=== PATIENT | female | born 1955 | race Caucasian/White ===

== ENCOUNTER → 2019-08-17 15:21 | Outpatient (CLI) | payer OTHER, SELFPAY ==
--- NOTE | 2019-08-17 | DI.MG.S_ITS ---
BILATERAL DIGITAL SCREENING MAMMOGRAM 3D/2D WITH CAD: 08/17/2019 CLINICAL: Routine screening. Family history of breast cancer. Comparison is made to exams dated: 06/24/2018 mammogram, 01/29/2017 mammogram, and 01/19/2015 mammogram - [facility]. The tissue of both breasts is heterogeneously dense. This may lower the sensitivity of mammography. Current study was also evaluated with a Computer Aided Detection (CAD) system. No significant masses, calcifications, or other findings are seen in either breast. There has been no significant interval change. IMPRESSION: NEGATIVE There is no mammographic evidence of malignancy. A 1 year screening mammogram is recommended. This exam was interpreted at Station ID: [id number]. NOTE: For mammograms, a report in lay terms will be sent to the patient. Approximately 15% of breast malignancies will not be visualized mammographically. In the management of a palpable breast mass, a negative mammogram must not discourage biopsy of a clinically suspicious lesion. Electronically Signed By: Alfonso blankenship/aurelio:08/17/2019 19:55:15 letter sent: Normal Exam ACR BI-RADS Category 1: Negative 3341F
== END ==
PROVIDERS: Visit Provider Family Medicine
DX: Z12.31 Encounter for screening mammogram for malignant neoplasm of breast (principal); Z80.3 Family history of malignant neoplasm of breast
CPT/HCPCS: 77063; 77067

== ENCOUNTER → 2020-08-12 09:56 | Outpatient (CLI) | payer OTHER, SELFPAY ==
--- NOTE | 2020-08-12 | DI.US.S_ITS ---
PROCEDURE: US CAROTID DOPPLER BI INDICATIONS: STENOSIS TECHNIQUE: Color and pulse Doppler interrogation was performed of both carotid systems, with image documentation and velocity measurements. COMPARISON: [facility], CT, CT ABDOMEN PELVIS W CON, 08/12/2020, 11:19. FINDINGS: Stenosis calculations are based on SRU (Society of Radiologists in Ultrasound) criteria. The flow velocities and the arterial waveforms are normal within both carotid arterial systems. Atherosclerotic plaque is seen on both sides. The estimated degree of internal carotid artery stenosis is less than 50%. Antegrade flow is confirmed within both vertebral arteries. IMPRESSION: No hemodynamically significant stenosis is seen. Atherosclerotic plaque is noted bilaterally. Dictated by: Rony Cali M.D. on 08/12/2020 at 10:53 Approved by: Rony Cali M.D. on 08/12/2020 at 10:54
[2020-08-12 10:37] LABS: Alanine Aminotransferase 26 IU/L (<35); Albumin 4.6 g/dL (3.5-5.0); Albumin Globulin Ratio 1.3 (1.0-2.8); Alkaline Phosphatase 84 U/L (38-126); Amylase 88 U/L (30-110); Aspartate Aminotransferase 35 IU/L (14-36); BUN Creatinine Ratio 18.5 (6-22); Bilirubin Total 0.9 mg/dL (0.2-1.3); Blood Urea Nitrogen 12 mg/dL (7-17); Calcium 9.6 mg/dL (8.4-10.2); Carbon Dioxide 26 mmol/L (22-32); Chloride 99 mmol/L (98-107); Estimated Glomerular Filt Rate > 60.0 mL/min (>60); Globulin 3.5 g/dL (1.7-4.1); Glucose 99 mg/dL (80-110); Lipase 181 U/L (23-300); Potassium 4.7 mmol/L (3.4-5.1); Sodium 127 mmol/L (137-145); Total Protein 8.1 g/dL (6.3-8.2)
[2020-08-12 10:39] LABS: C-Reactive Protein Quant < 0.5 mg/dL (<1.0); Erythrocyte Sedimentation Rate 20 MM/HR (0-20)
[2020-08-12 11:00] LABS: T4 Total Thyroxine 8.99 ug/dL (5.5-11.0)
--- NOTE | 2020-08-12 11:20 | DI.CT.S_ITS ---
PROCEDURE: CT ABDOMEN PELVIS W CON INDICATIONS: Pain in thoracic spine Occlusion and stenosis TECHNIQUE: After the administration of oral and intravenous contrast, 5 mm thick sections acquired from the diaphragms to the symphysis. 5 mm thick coronal and sagittal reformats were performed. For radiation dose reduction, the following was used: automated exposure control, adjustment of mA and/or kV according to patient size. COMPARISON: None. FINDINGS: Image quality: Excellent. ABDOMEN: Lung bases: Linear scarring or atelectasis is seen in the left lung base. Heart size is normal. Solid organs: Liver is normal in size and enhancement. Gallbladder appears normal. Biliary system is non-dilated. Pancreas enhances normally. Spleen is normal in size and enhancement. No adrenal nodules. Kidneys are normal in size and enhancement, without hydronephrosis. Peritoneum and bowel: A few diverticula are seen in the colon without signs of acute diverticulitis. No signs of small bowel obstruction. No free fluid or air. Nodes and vessels: No retroperitoneal or mesenteric adenopathy. Aorta and inferior vena cava are normal in caliber. Mild atherosclerotic calcifications are seen in the aorta. Miscellaneous: No ventral hernias. PELVIS: Genitourinary: Bladder wall thickness is normal. The uterus appears normal. No adnexal mass. Miscellaneous: No inguinal hernias or adenopathy. Bones: No suspicious bony lesions. No vertebral body compression fractures. Mild multilevel degenerative changes are seen in the included spine without high-grade narrowing of the bony spinal canal. IMPRESSION: 1. No acute abnormality is seen in the abdomen or pelvis. 2. Mild colonic diverticulosis without signs of acute diverticulitis. 3. Mild multilevel degenerative changes in the included spine. Dictated by: Juanjose Bell M.D. on 08/12/2020 at 10:58 Approved by: Juanjose Bell M.D. on 08/12/2020 at 11:07
[2020-08-13 07:09] LABS: Triiodothyronine T3 Total 99 ng/dL (71-180)
[2020-08-18 14:45] LABS: Cholesterol 194 mg/dL (140-199); HDL Cholesterol 45 mg/dL (40-60); HEMOLYSIS 26 (0-50); LDL Cholesterol Calculated 119 mg/dL (<100); Triglycerides 149 mg/dL (35-150)
== END ==
PROVIDERS: PCP Internal Medicine; Referring Provider Internal Medicine; Visit Provider Internal Medicine
DX: M54.6 Pain in thoracic spine (principal); I65.23 Occlusion and stenosis of bilateral carotid arteries; K21.00 Gastro-esophageal reflux disease with esophagitis, without bleeding; R07.9 Chest pain, unspecified; K57.90 Diverticulosis of intestine, part unspecified, without perforation or abscess without bleeding; E03.9 Hypothyroidism, unspecified; E78.5 Hyperlipidemia, unspecified; M47.819 Spondylosis without myelopathy or radiculopathy, site unspecified
CPT/HCPCS: 36415; 74177; 80053; 80061; 82150; 83690; 84436; 84443; 84480; 85651; 86140; 93880; Q9967

== ENCOUNTER → 2020-08-24 11:35 | Outpatient (CLI) | payer OTHER, SELFPAY ==
--- NOTE | 2020-08-24 | DI.MG.S_ITS ---
BILATERAL DIGITAL SCREENING MAMMOGRAM 3D/2D WITH CAD: 08/24/2020 CLINICAL: Routine screening. Family history of breast cancer. Comparison is made to exams dated: 08/17/2019 mammogram - [facility], 06/24/2018 mammogram, and 01/29/2017 mammogram - [facility]. The tissue of both breasts is heterogeneously dense. This may lower the sensitivity of mammography. Current study was also evaluated with a Computer Aided Detection (CAD) system. No significant masses, calcifications, or other findings are seen in either breast. There has been no significant interval change. IMPRESSION: NEGATIVE There is no mammographic evidence of malignancy. A 1 year screening mammogram is recommended. This exam was interpreted at Station ID: [id number]. NOTE: For mammograms, a report in lay terms will be sent to the patient. Approximately 15% of breast malignancies will not be visualized mammographically. In the management of a palpable breast mass, a negative mammogram must not discourage biopsy of a clinically suspicious lesion. Electronically Signed By: Alfonso blankenship/aurelio:08/24/2020 11:59:04 letter sent: Normal Exam ACR BI-RADS Category 1: Negative 3341F
[2020-08-24 11:59] LABS: Bacteria Urine None Seen
[2020-08-24 12:37] LABS: Appearance Urine UA CLEAR; Bilirubin Urine UA NEGATIVE (NEGATIVE); Color Urine UA YELLOW; Glucose Urine UA NEGATIVE (Negative); Ketones Urine UA NEGATIVE (NEGATIVE); Leukocyte Esterase Urine UA 2+ (NEGATIVE); Nitrite Urine UA NEGATIVE (Negative); Occult Blood Urine UA 2+ (Negative); Protein Urine UA NEGATIVE (Negative); Urobilinogen Urine UA 0.2 E.U./dL (0.2)
[2020-08-24 12:39] LABS: Sodium Urine Random 25 mmol/L (30-90)
[2020-08-24 12:43] LABS: RBC Urine 1-5/HPF (0-5/HPF); WBC Urine 5-10/HPF (0-5/HPF)
[2020-08-24 12:44] LABS: Culture Indicated Urine Cult Not Indicated; Squamous Epithelial Cell Urine 5-10 /HPF (0-5/HPF); Transitional Epi Cells Urine 1-5/HPF (0-5/HPF)
[2020-08-24 12:45] LABS: BUN Creatinine Ratio 21.3 (6-22); Blood Urea Nitrogen 13 mg/dL (7-17); Calcium 9.7 mg/dL (8.4-10.2); Carbon Dioxide 29 mmol/L (22-32); Chloride 97 mmol/L (98-107); Cholesterol 213 mg/dL (140-199); Estimated Glomerular Filt Rate > 60.0 mL/min (>60); Glucose 96 mg/dL (80-110); HDL Cholesterol 56 mg/dL (40-60); HEMOLYSIS < 15 (0-50); LDL Cholesterol Calculated 123 mg/dL (<100); Potassium 4.1 mmol/L (3.4-5.1); Sodium 133 mmol/L (137-145); Triglycerides 169 mg/dL (35-150)
[2020-08-25 15:08] LABS: Osmolality Urine 358 mOsmol/kg (.); Osmolality, Serum 276 mOsmol/kg (280-301)
== END ==
PROVIDERS: PCP Internal Medicine; Referring Provider Internal Medicine; Visit Provider Internal Medicine
DX: Z12.31 Encounter for screening mammogram for malignant neoplasm of breast (principal); Z80.3 Family history of malignant neoplasm of breast; E87.1 Hypo-osmolality and hyponatremia; E78.5 Hyperlipidemia, unspecified; M54.5 Low back pain
CPT/HCPCS: 36415; 77063; 77067; 80048; 80061; 81001; 83930; 83935; 84300

== ENCOUNTER → 2020-08-31 14:47 | Outpatient (CLI) | payer OTHER, SELFPAY ==
--- NOTE | 2020-08-31 | DI.RAD.S_ITS ---
PROCEDURE: XR CHEST 2V INDICATIONS: Hypo-osmolality and hyponatremia TECHNIQUE: 2 views of the chest were acquired. COMPARISON: None. FINDINGS: Surgical changes and devices: None. Lungs and pleura: Lungs are clear. No pleural effusions or pneumothorax. Mediastinum: Mediastinal contours are normal. Heart size is normal. Bones and chest wall: No suspicious bony abnormalities. Soft tissues appear unremarkable. IMPRESSION: No acute disease. Dictated by: James Mccabe M.D. on 08/31/2020 at 15:32 Approved by: James Mccabe M.D. on 08/31/2020 at 15:33
[2020-08-31 15:58] LABS: Appearance Urine UA CLEAR; Bilirubin Urine UA NEGATIVE (NEGATIVE); Color Urine UA YELLOW; Glucose Urine UA NEGATIVE (Negative); Ketones Urine UA NEGATIVE (NEGATIVE); Leukocyte Esterase Urine UA TRACE (NEGATIVE); Nitrite Urine UA NEGATIVE (Negative); Occult Blood Urine UA 1+ (Negative); Protein Urine UA NEGATIVE (Negative); Specific Gravity Urine UA 1.015 (1.000-1.035); Urobilinogen Urine UA 0.2 E.U./dL (0.2)
[2020-08-31 16:36] LABS: Bacteria Urine Few (2-10); Culture Indicated Urine Specimen Cultured; RBC Urine 1-5/HPF (0-5/HPF); Squamous Epithelial Cell Urine 1-5 /HPF (0-5/HPF); WBC Urine 0-1/HPF (0-5/HPF)
== END ==
PROVIDERS: PCP Internal Medicine; Referring Provider Internal Medicine; Visit Provider Internal Medicine
DX: E87.1 Hypo-osmolality and hyponatremia (principal); R31.29 Other microscopic hematuria
CPT/HCPCS: 71046; 81001; 87077; 87086; 87147

== ENCOUNTER → 2020-11-21 15:31 | Outpatient (CLI) | payer MEDICARE, SELFPAY ==
[2020-11-21] MEDS: COVID-19 VACC, Ad26(JANSSEN)/PF 0.5 ML IM (15:35)
== END ==
PROVIDERS: PCP Internal Medicine; Visit Provider Internal Medicine
DX: Z23 Encounter for immunization (principal)
CPT/HCPCS: 0031A; 91303

== ENCOUNTER → 2020-12-21 13:07 | Outpatient (CLI) | payer MEDICARE, OTHER, SELFPAY ==
--- NOTE | 2020-12-21 | DI.RAD.S_ITS ---
PROCEDURE: XR DEXA AXIAL SKELETON INDICATIONS: Unspecified menopausal and perimenopausal disorder COMPARISON: None. FINDINGS: This blank DEXA report has been sent in error by the PACS system. The correct and complete report will be forthcoming in 1-2 days. Thank you for your patience and understanding. Dictated by: Susi Levine MD, PhD on 12/21/2020 at 17:18 Approved by: Susi Levine MD, PhD on 12/21/2020 at 17:18
== END ==
PROVIDERS: PCP Student in an Organized Health Care Education/Training Program; Referring Provider Student in an Organized Health Care Education/Training Program; Visit Provider Student in an Organized Health Care Education/Training Program
DX: M85.852 Other specified disorders of bone density and structure, left thigh (principal); Z78.0 Asymptomatic menopausal state
CPT/HCPCS: 77080

== ENCOUNTER → 2021-09-11 16:38 | Outpatient (CLI) | payer MEDICARE, BC, SELFPAY ==
--- NOTE | 2021-09-11 16:44 | DI.MG.S_ITS ---
BILATERAL DIGITAL SCREENING MAMMOGRAM 3D/2D WITH CAD: 09/11/2021 CLINICAL: Routine screening. Family history of breast cancer. Comparison is made to exams dated: 08/24/2020 mammogram, 08/17/2019 mammogram - [facility], and 06/24/2018 mammogram - [facility]. The tissue of both breasts is extremely dense, which lowers the sensitivity of mammography. Current study was also evaluated with a Computer Aided Detection (CAD) system. No significant masses, calcifications, or other findings are seen in either breast. There has been no significant interval change. IMPRESSION: NEGATIVE There is no mammographic evidence of malignancy. A 1 year screening mammogram is recommended. This exam was interpreted at Station ID: [id number]. NOTE: For mammograms, a report in lay terms will be sent to the patient. Approximately 15% of breast malignancies will not be visualized mammographically. In the management of a palpable breast mass, a negative mammogram must not discourage biopsy of a clinically suspicious lesion. Electronically Signed By: Keri campoverde/aurelio:09/12/2021 10:38:27 letter sent: Normal Exam ACR BI-RADS Category 1: Negative 3341F
== END ==
PROVIDERS: PCP Student in an Organized Health Care Education/Training Program; Referring Provider Student in an Organized Health Care Education/Training Program; Visit Provider Student in an Organized Health Care Education/Training Program
DX: Z12.31 Encounter for screening mammogram for malignant neoplasm of breast (principal); Z80.3 Family history of malignant neoplasm of breast
CPT/HCPCS: 77063; 77067

== ENCOUNTER → 2022-06-04 11:06 | Outpatient (CLI) | payer MEDICARE, OTHER, SELFPAY ==
--- NOTE | 2022-06-04 11:13 | DI.RAD.S_ITS ---
PROCEDURE: XR HIP W PEL IF DONE RT 2V INDICATIONS: RIGHT HIP PAIN TECHNIQUE: AP pelvis with lateral view(s) of the right hip(s). COMPARISON: None. FINDINGS: Bones: No fractures or dislocations. Pelvic ring appears intact. No suspicious bony lesions. Mild degenerative changes of both hips. Soft tissues: The visualized bowel gas pattern is normal. No suspicious soft tissue calcifications. IMPRESSION: Mild degenerative changes of both hips and sacroiliac joints. Dictated by: Farhad Byrd M.D. on 06/04/2022 at 12:30 Approved by: Farhad Byrd M.D. on 06/04/2022 at 12:32
--- NOTE | 2022-06-04 11:13 | DI.RAD.S_ITS ---
PROCEDURE: XR LUMBAR SPINE 2-3V INDICATIONS: LOW BACK PAIN WITH RIGHT-SIDED SCIATICA TECHNIQUE: 3 views of the lumbar spine were acquired. COMPARISON: None. FINDINGS: Bones: Three views of the lumbar spine demonstrate multilevel degenerative changes and osteophytes. Facet arthrosis is seen in the lower lumbar spine spanning from L3 through S1. No vertebral body height loss. Sacroiliac joints are normal. Mild rightward curvature of the lumbar spine. Soft tissues: The aorta has atherosclerotic calcifications. Overlying bowel gas pattern is normal. No suspicious soft tissue calcifications. IMPRESSION: 1. Multilevel degenerative changes and facet arthrosis. 2. No significant disc space narrowing. 3. Given radicular symptoms consider MRI. Dictated by: Farhad Byrd M.D. on 06/04/2022 at 12:21 Approved by: Farhad Byrd M.D. on 06/04/2022 at 12:29
--- NOTE | 2022-06-04 11:13 | DI.RAD.S_ITS ---
PROCEDURE: XR HAND LT MIN 3V INDICATIONS: BILATERAL HAND PAIN AND SWELLING TECHNIQUE: 3 views of the hand(s) acquired. COMPARISON: None. FINDINGS: Bones: No fractures or dislocations. Carpal bones are normally aligned. No suspicious bony lesions. Degenerative changes of the distal interphalangeal joints are minimal. No erosions or evidence of inflammatory arthropathy. Soft tissues: No suspicious soft tissue calcifications. IMPRESSION: Minimal degenerative changes in the distal interphalangeal joints with no radiographic evidence of inflammatory arthropathy. Dictated by: Farhad Byrd M.D. on 06/04/2022 at 12:19 Approved by: Farhad Byrd M.D. on 06/04/2022 at 12:21
--- NOTE | 2022-06-04 11:13 | DI.RAD.S_ITS ---
PROCEDURE: XR HAND RT MIN 3V INDICATIONS: BILATERAL HAND PAIN AND SWELLING TECHNIQUE: 3 views of the hand(s) acquired. COMPARISON: None. FINDINGS: Bones: No fractures or dislocations. Carpal bones are normally aligned. No suspicious bony lesions. Soft tissues: No suspicious soft tissue calcifications. IMPRESSION: Normal right hand radiographs Approved by: Bernard Gonsalves M.D. on 06/04/2022 at 14:01
== END ==
PROVIDERS: PCP Student in an Organized Health Care Education/Training Program; Referring Provider Student in an Organized Health Care Education/Training Program; Visit Provider Student in an Organized Health Care Education/Training Program
DX: M47.26 Other spondylosis with radiculopathy, lumbar region (principal); M25.551 Pain in right hip; M25.541 Pain in joints of right hand; M79.89 Other specified soft tissue disorders; M25.542 Pain in joints of left hand; G89.29 Other chronic pain
CPT/HCPCS: 72100; 73130; 73502

== ENCOUNTER → 2022-08-13 10:17 | Outpatient (CLI) | payer MEDICARE, OTHER, SELFPAY ==
--- NOTE | 2022-08-13 10:20 | DI.RAD.S_ITS ---
PROCEDURE: XR CERVICAL SPINE 4V OR 5V INDICATIONS: cervical radiculopathy TECHNIQUE: 3 views of the cervical spine acquired. COMPARISON: None. FINDINGS: Bones: No fractures or dislocations to the T1 level. Loss of disc height and degenerative endplate changes are noted throughout cervical spine more notably at C4-5 and C5-6 levels. Oblique images demonstrate right-sided bony foraminal stenosis at C3-4 level. Bilateral neural foraminal narrowing at C5-6 and C6-7 levels also noted. Soft tissues: No prevertebral soft tissue swelling. IMPRESSION: Degenerative disc disease throughout cervical spine with bilateral neural foraminal narrowing in mid to lower cervical spine as above. No fracture or dislocation. Dictated by: Mal Brambila M.D. on 08/13/2022 at 13:05 Approved by: Mal Brambila M.D. on 08/13/2022 at 13:08
--- NOTE | 2022-08-13 10:20 | DI.RAD.S_ITS ---
PROCEDURE: XR THORACIC SPINE 3V INDICATIONS: Thoracic radiculopathy TECHNIQUE: 3 views of the thoracic spine were acquired. COMPARISON: None. FINDINGS: Bones: No fractures or dislocations. No suspicious bony lesions. Degenerative endplate changes are noted throughout mid to lower thoracic spine. 12 pairs of ribs are noted, and appear intact where visualized. Soft tissues: No paravertebral stripe thickening. IMPRESSION: Mild degenerative disc disease in mid to lower thoracic spine. No acute compression fracture or spondylolisthesis. Dictated by: Mal Brambila M.D. on 08/13/2022 at 13:04 Approved by: Mal Brambila M.D. on 08/13/2022 at 13:05
== END ==
PROVIDERS: PCP Student in an Organized Health Care Education/Training Program; Referring Provider Physical Medicine & Rehabilitation; Visit Provider Physical Medicine & Rehabilitation
DX: M47.24 Other spondylosis with radiculopathy, thoracic region (principal); M51.14 Intervertebral disc disorders with radiculopathy, thoracic region; M50.121 Cervical disc disorder at C4-C5 level with radiculopathy; M48.02 Spinal stenosis, cervical region; M70.61 Trochanteric bursitis, right hip
CPT/HCPCS: 72050; 72072; 99214

== ENCOUNTER → 2022-09-21 14:38 | Outpatient (CLI) | payer OTHER, SELFPAY ==
--- NOTE | 2022-09-21 14:40 | DI.MRI.S_ITS ---
PROCEDURE: MR THORACIC SPINE WO CON INDICATIONS: Thoracic radiculopathy Right T10 TECHNIQUE: Noncontrast sagittal T1 spine echo and T2 fast spin echo, sagittal STIR, and T2 fast spin echo through the thoracic spine. COMPARISON: [facility], MR, MR CERVICAL SPINE WO CON, 09/21/2022, 15:17. [facility], CR, XR THORACIC SPINE 3V, 08/13/2022, 10:33. FINDINGS: Image quality: This examination is limited by involuntary motion artifact. Alignment and Curvature: There is normal bony alignment. Bone Marrow: Marrow is of normal overall signal. Scattered foci are seen, which are hyperintense on T1-weighted and T2-weighted imaging, which are most consistent with benign vertebral body hemangiomas. No acute vertebral body compression fractures. Spinal Cord: Visualized spinal cord is normal in size and signal. Paraspinous Soft Tissues: No paravertebral masses. Miscellaneous: Lower cervical spine degenerative changes are seen. No significant neural foraminal or central canal narrowing can be seen within the thoracic spine. IMPRESSION: No imaging explanation is found for this patient's presenting symptoms. No significant thoracic spine MRI abnormality can be seen. Dictated by: Rony Cali M.D. on 09/21/2022 at 16:30 Approved by: Rony Cali M.D. on 09/21/2022 at 16:32
--- NOTE | 2022-09-21 14:40 | DI.MRI.S_ITS ---
PROCEDURE: MR CERVICAL SPINE WO CON INDICATIONS: Right C7 Radicu TECHNIQUE: Noncontrast sagittal T1 spin echo and T2 fast spin echo, sagittal STIR, foraminal oblique sagittal T2 fast spin echo, and axial gradient echo or T2 fast spin echo through the cervical spine. COMPARISON: [facility], CR, XR CERVICAL SPINE 4V OR 5V, 08/13/2022, 10:33. [facility], MR, MR THORACIC SPINE WO CON, 09/21/2022, 15:54. FINDINGS: Image quality: Excellent. Alignment and Curvature: There is straightening of the normal cervical lordosis. No focal AP alignment abnormality is seen. Bone Marrow: Marrow demonstrates normal overall signal. Spinal Cord: Visualized spinal cord has normal size and signal. No cerebellar tonsillar herniation. Paraspinous Soft Tissues: No paravertebral masses. Prevertebral soft tissues are normal in thickness. C2-C3: The disc height is well-preserved. Loss of disc signal is seen at this level. A mild degree of generalized disc osteophyte complex is seen. Mild facet joint hypertrophy is seen. There is [id number] bilateral neural foraminal narrowing seen. No significant central canal narrowing is seen. C3-C4: The disc height is well-preserved. Loss of disc signal is seen at this level. A mild degree of generalized disc osteophyte complex is seen. There is prominent left-sided and mild right-sided facet hypertrophy. There is moderate to severe left-sided and at least moderate right-sided neural foraminal narrowing. Mild central canal narrowing is seen. C4-C5: Mild loss of disc height is seen. Loss of disc signal is seen. Moderate generalized disc osteophyte complex is seen. There is moderate right-sided and mild left-sided facet hypertrophy. There is moderate to severe right-sided and moderate left-sided neural foraminal narrowing. Mild to moderate central canal narrowing can be seen. C5-C6: Moderate loss of disc height is seen. Loss of disc signal is seen. At least moderate disc osteophyte complex is seen, which is eccentric to the right. Uncovertebral joint hypertrophy is seen at this level. Mild facet joint hypertrophy is seen. There is moderate to severe bilateral neural foraminal narrowing seen, right worse than left. Moderate central canal narrowing is seen. There is associated mass effect upon the ventral spinal cord. C6-C7: Moderate loss of disc height is seen. Loss of disc signal is seen. Moderate disc osteophyte complex is seen, with a central/left disc osteophyte protrusion. Uncovertebral joint hypertrophy is seen at this level. Mild to moderate facet hypertrophy can be seen. There is at least moderate right-sided and moderate to severe left-sided neural foraminal narrowing. Moderate central canal narrowing is seen, with minimal mass effect upon the ventral spinal cord. C7-T1: No significant abnormality is seen. IMPRESSION: Multiple levels of cervical spine degenerative change are seen, which are overall worst inferiorly. Dictated by: Rony Cali M.D. on 09/21/2022 at 16:25 Approved by: Rony Cali M.D. on 09/21/2022 at 16:30
== END ==
PROVIDERS: PCP Student in an Organized Health Care Education/Training Program; Referring Provider Physical Medicine & Rehabilitation; Visit Provider Physical Medicine & Rehabilitation
DX: M47.22 Other spondylosis with radiculopathy, cervical region (principal); M47.24 Other spondylosis with radiculopathy, thoracic region
CPT/HCPCS: 72141; 72146

== ENCOUNTER → 2022-10-03 13:25 | Outpatient (CLI) | payer OTHER, SELFPAY ==
--- NOTE | 2022-10-03 | DI.MG.S_ITS ---
BILATERAL DIGITAL SCREENING MAMMOGRAM 3D/2D WITH CAD: 10/03/2022 CLINICAL: Routine screening. Family history of breast cancer. Comparison is made to exams dated: 09/11/2021 mammogram, 08/24/2020 mammogram, 08/17/2019 mammogram - , and 06/24/2018 mammogram - [facility]. Both breasts are extremely dense, which lowers the sensitivity of mammography (category d />75% glandular tissue). Current study was also evaluated with a Computer Aided Detection (CAD) system. No significant masses, calcifications, or other findings are seen in either breast. There has been no significant interval change. IMPRESSION: NEGATIVE There is no mammographic evidence of malignancy. A 1 year screening mammogram is recommended. Based on the Tyrer Cuzick model (a risk assessment model) the patient's lifetime risk is 14.8% and her 10 year risk is 7.6%. According to the ACR, ACS, and NCCN guidelines, an annual breast MRI exam along with mammogram is recommended if the patient's lifetime risk is 20% or greater. This exam was interpreted at Station ID: [id number]. NOTE: For mammograms, a report in lay terms will be sent to the patient. Approximately 15% of breast malignancies will not be visualized mammographically. In the management of a palpable breast mass, a negative mammogram must not discourage biopsy of a clinically suspicious lesion. Electronically Signed By: Young sánchez/aurelio:10/03/2022 13:47:52 letter sent: Normal Exam ACR BI-RADS Category 1: Negative 3341F
== END ==
PROVIDERS: PCP Student in an Organized Health Care Education/Training Program; Referring Provider Student in an Organized Health Care Education/Training Program; Visit Provider Student in an Organized Health Care Education/Training Program
DX: Z12.31 Encounter for screening mammogram for malignant neoplasm of breast (principal); Z80.3 Family history of malignant neoplasm of breast
CPT/HCPCS: 77063; 77067

== ENCOUNTER 2022-11-27 09:11 | Outpatient (CLI) | payer OTHER, SELFPAY ==
[2022-11-27] VITALS (8 sets, daily range): BP systolic 112–134; BP diastolic 62–71; PULSE 52–60; RESP 12–20; TEMP 36.2; O2SAT 97–100
--- NOTE | 2022-11-27 09:13 | DI.RAD.S_ITS ---
PROCEDURE: PAIN C/T INTERLAMINAR INJECT INDICATIONS: SPINAL STENOSIS COMPARISON: [facility], CR, XR CERVICAL SPINE 4V OR 5V, 08/13/2022, 10:33. FINDINGS: Fluoroscopic spot filming was performed to verify placement of spinal needles at the C6-C7 level(s), as labeled on the films. Appropriate location(s) of the needle tip(s) was confirmed by injection of iodinated contrast. IMPRESSION: Image guidance provided. Dictated by: Young Roblero M.D. on 11/27/2022 at 11:54 Approved by: Young Roblero M.D. on 11/27/2022 at 11:55
[2022-11-27] MEDS: MIDAZOLAM 2 MG/2 ML VIAL IV (10:26)
[2022-11-27] MEDS: DEXAMETHASONE 10 MG/ML VIAL 30 MG INJ (10:30)
[2022-11-27] MEDS: BUPIVACAINE 0.25% (PF) VIAL 2 ML INJ (10:30)
[2022-11-27] MEDS: IOPAMIDOL 15 ML VIAL 3 ML INJ (10:30)
--- NOTE | 2022-11-27 10:43 | P.PCN_ITS ---
Date/Time/Diagnoses Date of procedure: 11/27/22 Time of procedure: 10:43 Pre-procedure diagnosis: 1. CERVICAL STENOSIS, 2. CERVICAL HNP WITH UPPER EXTREMITY RADICULAR FEATURES Post-procedure diagnosis: same Procedure Notes Procedure: 1. FLUORSCOPICALLY GUIDED CONTRAST CONTROLLED INTERLAMINAR EPIDURAL STEROID INJECTION - C6/7 TL LAKESHA Indications: Kim is referred by Lara Gonslaes for treatment of Cervical HNP with Upper Extremity Paresthesias. Physician: Sammy Louie Total Fluoroscopy time (seconds): 29 Total sedation minutes: 14 Complications: none Procedure in detail & Post-procedure care: FINDINGS Cervical Stenosis due to disc deterioration and nerve root irritation and nerve root irritation DESCRIPTION OF PROCEDURE Fluoroscopically guided, contrast-controlled C6/7 translaminar epidural steroid injection with conscious sedation. Following review of allergy and review of potential side effects and complications, including, but not necessarily limited to, infection, allergic reaction, local tissue breakdown, temporary as well as permanent nerve injury, stroke, paralysis, and possible , the patient indicated that patient understood and agreed to proceed. An informed consent document was signed by the patient, witnessed by a nurse, and placed in the patient's chart. Additionally, other treatment options including modalities, medications, and physical therapy were reviewed with the patient. After review of previous anaesthesic history and IV conscious sedation the patient was deemed safe to proceed with today?s procedure with IV conscious s edation as ASA class II designation. Safety time-out was performed to confirm patient ID, procedure to be performed and site of procedure. IV sedation was accomplished with a combination of 2mg of Versed administered by the RN after DO order, titrated to patient comfort during the course of the procedure while the patient remained responsive to all verbal commands. In the prone position, following sterile prep and drape of the cervical region, the C6/7 translaminar space was identified fluoroscopically. The skin was anesthetized via a 25-gauge 1.5-inch needle with 1% lidocaine solution. At this point, a 25-gauge, 2.5-inch short bevel spinal needle was atraumatically introduced and advanced under fluoroscopic guidance into epidural space at the C6/7 translaminar space. Depth was confirmed on lateral view. Radiological data, including multiple fluoroscopic views of the cervical spine, reveal a spinal needle at the C6/7 translaminar space. Lateral views then show placement of the needle in the epidural space. Subsequent views show contrast material flowing superiorly and inferiorly in the epidural space. DSA fluoroscopy with live contrast injection, once again, confirmed no vascular or intrathecal uptake. At this point, using loss of resistance technique with saline and air, the epidural space was entered. Following negative aspiration, injection of approximately 1.5 cc of [id number]-200 with live fluoroscopy in the AP view confirmed epidural flow in the epidural space without vascular or intrathecal uptake observed. Subsequently, a test dose of 1 cc of 1% lidocaine solution was injected and patient was observed for two minutes without signs or symptoms of complications, including abdominal pain, shortness of breath, bilateral upper or lower extremity weakness, nausea and vomiting, prior to steroid injection. At this point, 3cc or 30mg of dexamethasone was then injected without incident. The patient tolerated the procedure well without signs or symptoms of complications prior to being transferred to the recovery area for further monitoring, The patient was then transferred to the recovery area where they were observed for an appropriate period of time after the injection. The patient reported a VAS score of 6 prior to the procedure and a post-procedure VAS of 0. POST OP INSTRUCTIONS The patient was provided a Pain Log to continue to record their response to the target-specific procedure prior to follow-up visit with the referring provider. Additionally, specific post-injection care instructions and a contact number to our office were provided if concerns arise regarding possible complications associated with the procedure are suspected.
== END 2022-11-27 10:56 | disposition home or self-care (01) ==
PROVIDERS: PCP Student in an Organized Health Care Education/Training Program; Referring Provider Physical Medicine & Rehabilitation; Visit Provider Physical Medicine & Rehabilitation
DX: M48.02 Spinal stenosis, cervical region (principal); M50.123 Cervical disc disorder at C6-C7 level with radiculopathy
CPT/HCPCS: 62321; 99152; J1100; J2250; J3490

== ENCOUNTER → 2022-12-21 16:32 | Outpatient (CLI) | payer OTHER, SELFPAY ==
[2022-12-21 17:39] LABS: Add Manual Diff / Slide Review NO; Basophils Absolute Auto 100 /uL (0-100); Basophils Percent Auto 0.8 % (0-2); Eosinophils Absolute Auto 100 /uL (0-450); Eosinophils Percent Auto 2.3 % (2-4); Hematocrit 35.7 % (36-46); Hemoglobin 12.3 g/dL (12.0-16.0); Lymphocytes Absolute Auto 2500 /uL (1100-4500); Lymphocytes Percent Auto 39.1 % (25-40); Mean Corpuscular HGB Conc 34.5 % (30-36); Mean Corpuscular Hemoglobin 31.3 PG (26-34); Mean Corpuscular Volume 90.5 fL (80-100); Monocytes Absolute Auto 400 /uL (0-900); Monocytes Percent Auto 6.8 % (3-14); Neutrophils Absolute Auto 3300 /uL (1500-7000); Platelet Count 263 X10^3/uL (150-400); Red Blood Cell Count 3.94 X10^6/uL (4.0-5.2); Red Cell Distribution Width 13.1 % (11.6-14.8); White Blood Cell Count 6.4 X10^3/uL (4.5-11.0)
[2022-12-21 17:58] LABS: Alanine Aminotransferase 54 IU/L (<35); Albumin 4.4 g/dL (3.5-5.0); Albumin Globulin Ratio 1.3 (1.0-2.8); Alkaline Phosphatase 97 U/L (38-126); Aspartate Aminotransferase 40 IU/L (14-36); BUN Creatinine Ratio 19.6 (6-22); Bilirubin Unconjugated 0.9 mg/dL (0.0-1.1); Blood Urea Nitrogen 11 mg/dL (7-17); Calcium 9.6 mg/dL (8.4-10.2); Carbon Dioxide 24 mmol/L (22-32); Chloride 100 mmol/L (98-107); Estimated Glomerular Filt Rate > 60 mL/min (>60); Globulin 3.5 g/dL (1.7-4.1); Glucose 143 mg/dL (80-110); HEMOLYSIS < 15 (0-50); Potassium 4.1 mmol/L (3.4-5.1); Sodium 134 mmol/L (137-145); Total Protein 7.9 g/dL (6.3-8.2)
== END ==
PROVIDERS: PCP Student in an Organized Health Care Education/Training Program; Referring Provider Student in an Organized Health Care Education/Training Program; Visit Provider Student in an Organized Health Care Education/Training Program
DX: Z00.00 Encounter for general adult medical examination without abnormal findings (principal); E78.5 Hyperlipidemia, unspecified; E03.9 Hypothyroidism, unspecified; R74.8 Abnormal levels of other serum enzymes
CPT/HCPCS: 36415; 80053; 80076; 84443; 85025

== ENCOUNTER → 2023-02-27 08:59 | Outpatient (CLI) | payer OTHER, SELFPAY ==
[2023-02-27 10:20] LABS: Add Manual Diff / Slide Review NO; Basophils Absolute Auto 0 /uL (0-100); Basophils Percent Auto 0.9 % (0-2); Eosinophils Absolute Auto 100 /uL (0-450); Hematocrit 38.3 % (36-46); Lymphocytes Absolute Auto 2300 /uL (1100-4500); Lymphocytes Percent Auto 39.4 % (25-40); Mean Corpuscular Hemoglobin 30.9 PG (26-34); Mean Corpuscular Volume 90.8 fL (80-100); Monocytes Absolute Auto 500 /uL (0-900); Monocytes Percent Auto 9.1 % (3-14); Neutrophils Absolute Auto 2800 /uL (1500-7000); Neutrophils Percent Auto 48.6 % (50-75); Platelet Count 272 X10^3/uL (150-400); Red Blood Cell Count 4.22 X10^6/uL (4.0-5.2); White Blood Cell Count 5.7 X10^3/uL (4.5-11.0)
[2023-02-27 11:01] LABS: BUN Creatinine Ratio 15.9 (6-22); Blood Urea Nitrogen 10 mg/dL (7-17); Calcium 9.6 mg/dL (8.4-10.2); Carbon Dioxide 27 mmol/L (22-32); Chloride 98 mmol/L (98-107); Cholesterol 204 mg/dL (140-199); Estimated Glomerular Filt Rate > 60 mL/min (>60); Glucose 98 mg/dL (80-110); HDL Cholesterol 50 mg/dL (40-60); HEMOLYSIS < 15 (0-50); LDL Cholesterol Calculated 122 mg/dL (<100); Potassium 4.6 mmol/L (3.4-5.1); Sodium 134 mmol/L (137-145); Triglycerides 161 mg/dL (35-150)
== END ==
PROVIDERS: PCP Student in an Organized Health Care Education/Training Program; Referring Provider Student in an Organized Health Care Education/Training Program; Visit Provider Student in an Organized Health Care Education/Training Program
DX: E78.5 Hyperlipidemia, unspecified (principal); D64.9 Anemia, unspecified
CPT/HCPCS: 36415; 80048; 80061; 85025

== ENCOUNTER → 2023-03-19 16:37 | Outpatient (CLI) | payer OTHER, SELFPAY ==
--- NOTE | 2023-03-19 | DI.US.S_ITS ---
PROCEDURE: US ABDOMEN LIMITED INDICATIONS: ELEVATED LIVER ENZYMES TECHNIQUE: Real-time scanning was performed of the abdominal and retroperitoneal organs, with image documentation. COMPARISON: None. FINDINGS: Liver: Liver is normal in size and homogeneous in echotexture. Gallbladder: The gallbladder is filled with calcified stones. The gallbladder wall measures up to 3.8 mm in diameter. No pericholecystic fluid or sonographic Reaves sign. Biliary ducts: Intrahepatic bile ducts are non-dilated. Extrahepatic bile duct caliber measures 3.6 mm. Normal is 6-7 mm or less in diameter, or 10 mm or less post-cholecystectomy. Pancreas: Visualized portions of the pancreas are sonographically normal. The tail is not well visualized. Miscellaneous: No free abdominal fluid. IMPRESSION: 1. Gallstone filled gallbladder. Although there is mild gallbladder wall thickening, there are no ancillary findings to suggest acute cholecystitis. No findings to suggest choledocholithiasis. Dictated by: Kelly Craig M.D. on 03/20/2023 at 8:31 Approved by: Kelly Craig M.D. on 03/20/2023 at 8:33
== END ==
PROVIDERS: PCP Student in an Organized Health Care Education/Training Program; Referring Provider Student in an Organized Health Care Education/Training Program; Visit Provider Student in an Organized Health Care Education/Training Program
DX: K80.20 Calculus of gallbladder without cholecystitis without obstruction (principal); R74.8 Abnormal levels of other serum enzymes
CPT/HCPCS: 76705

== ENCOUNTER → 2023-10-09 13:59 | Outpatient (CLI) | payer OTHER, SELFPAY ==
--- NOTE | 2023-10-09 | DI.MG.S_ITS ---
BILATERAL DIGITAL SCREENING MAMMOGRAM 3D/2D WITH CAD: 10/09/2023 CLINICAL: Routine screening. Family history of breast cancer. Comparison is made to exams dated: 10/03/2022 mammogram, 09/11/2021 mammogram, and 08/24/2020 mammogram - [facility]. Both breasts are extremely dense, which lowers the sensitivity of mammography (category d />75% glandular tissue). Current study was also evaluated with a Computer Aided Detection (CAD) system. No significant masses, calcifications, or other findings are seen in either breast. There has been no significant interval change. IMPRESSION: NEGATIVE There is no mammographic evidence of malignancy. A 1 year screening mammogram is recommended. Based on the Tyrer Cuzick model (a risk assessment model) the patient's lifetime risk is 14.1% and her 10 year risk is 7.5%. According to the ACR, ACS, and NCCN guidelines, an annual breast MRI exam along with mammogram is recommended if the patient's lifetime risk is 20% or greater. This exam was interpreted at Station ID: [id number]. NOTE: For mammograms, a report in lay terms will be sent to the patient. Approximately 15% of breast malignancies will not be visualized mammographically. In the management of a palpable breast mass, a negative mammogram must not discourage biopsy of a clinically suspicious lesion. Electronically Signed By: Alfonso blankenship/aurelio:10/09/2023 18:50:40 letter sent: Normal Exam ACR BI-RADS Category 1: Negative [id number]
== END ==
PROVIDERS: PCP Student in an Organized Health Care Education/Training Program; Referring Provider Student in an Organized Health Care Education/Training Program; Visit Provider Student in an Organized Health Care Education/Training Program
DX: Z12.31 Encounter for screening mammogram for malignant neoplasm of breast (principal); Z80.3 Family history of malignant neoplasm of breast; R92.343 Mammographic extreme density, bilateral breasts
CPT/HCPCS: 77063; 77067

== ENCOUNTER → 2024-07-31 09:19 | Outpatient (CLI) | payer OTHER, SELFPAY ==
[2024-07-31 10:22] LABS: Add Manual Diff / Slide Review NO; Basophils Absolute Auto 100 /uL (0-100); Eosinophils Absolute Auto 200 /uL (0-450); Eosinophils Percent Auto 2.9 % (2-4); Hematocrit 38.2 % (36-46); Hemoglobin 12.8 g/dL (12.0-16.0); Lymphocytes Absolute Auto 2100 /uL (1100-4500); Lymphocytes Percent Auto 39.1 % (25-40); Mean Corpuscular HGB Conc 33.5 % (30-36); Mean Corpuscular Hemoglobin 30.7 PG (26-34); Mean Corpuscular Volume 91.5 fL (80-100); Monocytes Absolute Auto 400 /uL (0-900); Monocytes Percent Auto 8.1 % (3-14); Neutrophils Absolute Auto 2600 /uL (1500-7000); Neutrophils Percent Auto 48.9 % (50-75); Platelet Count 264 X10^3/uL (150-400); Red Blood Cell Count 4.18 X10^6/uL (4.0-5.2); Red Cell Distribution Width 12.9 % (11.6-14.8); White Blood Cell Count 5.4 X10^3/uL (4.5-11.0)
[2024-07-31 10:43] LABS: Alanine Aminotransferase 37 IU/L (<35); Albumin 4.6 g/dL (3.5-5.0); Albumin Globulin Ratio 1.6 (1.0-2.8); Alkaline Phosphatase 74 U/L (38-126); Aspartate Aminotransferase 38 IU/L (14-36); BUN Creatinine Ratio 16.2 (6-22); Bilirubin Total 1.1 mg/dL (0.2-1.3); Blood Urea Nitrogen 12 mg/dL (7-17); Calcium 9.9 mg/dL (8.4-10.2); Carbon Dioxide 26 mmol/L (22-32); Chloride 100 mmol/L (98-107); Cholesterol 210 mg/dL (140-199); Estimated Glomerular Filt Rate > 60 mL/min (>60); Globulin 2.8 g/dL (1.7-4.1); Glucose 98 mg/dL (80-110); HDL Cholesterol 62 mg/dL (40-60); HEMOLYSIS < 15 (0-50); LDL Cholesterol Calculated 118 mg/dL (<100); Potassium 4.7 mmol/L (3.4-5.1); Sodium 134 mmol/L (137-145); Total Protein 7.4 g/dL (6.3-8.2); Triglycerides 151 mg/dL (35-150)
== END ==
PROVIDERS: PCP Family Medicine; Referring Provider Family Medicine; Visit Provider Family Medicine
DX: E03.9 Hypothyroidism, unspecified (principal); E78.5 Hyperlipidemia, unspecified
CPT/HCPCS: 36415; 80053; 80061; 84443; 85025

== ENCOUNTER → 2024-08-24 12:41 | Outpatient (CLI) | payer OTHER, SELFPAY ==
--- NOTE | 2024-08-24 12:43 | DI.RAD.S_ITS ---
PROCEDURE: XR DEXA AXIAL SKELETON INDICATIONS: Screening for osteoporosis, post menopause COMPARISON: [facility], CR, XR DEXA AXIAL SKELETON, 12/21/2020, 13:56. FINDINGS: Lumbar Spine: Bone mineral density 0.947 g/cm2, T score -0.9, previously -0.6. Please note that the lowest T-score is -1.2 for the L1 vertebral body. Left Hip: Bone mineral density 0.766 g/cm2, T score -1.4, previously -1.0. Left Femoral Neck: Bone mineral density 0.67 g/cm2, T score -1.6, previously -1.6. Right Hip: Bone mineral density 0.773 g/cm2, T score -1.4, previously -1.1. Right Femoral Neck: Bone mineral density 0.690 g/cm2, T score -1.4, previously -1.1. Fracture Risk Calculation (when applicable): 10-year fracture risk of a major osteoporotic fracture 16 percent and of a hip fracture 2.4 percent. (T score greater or equal to -1.0 to: NORMAL) (T score from -1.1 to -2.4: OSTEOPENIA) (T score less than or equal to -2.5: OSTEOPOROSIS) IMPRESSION: 1. Normal bone density of the lumbar spine, although the L1 vertebral body is osteopenic. 2. Osteopenia of the left hip and femoral neck. 3. Osteopenia of the right hip and femoral neck. Follow-up guidelines as follows: Osteoporosis: Consider a repeat DEXA and Vertebral Fracture Assessment (VFA) exam in 2 years or sooner if medically necessary, to reassess this patient's status. Osteopenia: Consider a repeat DEXA in 2-3 years to reassess this patient's status, or if there is a new clinical indication. Normal: Consider a repeat DEXA in 5 years or sooner, or if there is a new clinical indication. All treatment decisions require clinical judgment and consideration of individual patient factors, including patient preferences, comorbidities, previous drug use, risk factors not captured in the FRAX model (e.g., frailty, falls, vitamin D deficiency, increased bone turnover, interval significant decline in bone density ) and possible under- or over-estimation of fracture risk by FRAX. In addition, the NOF Guide recommends that FDA-approved medical therapies be considered in postmenopausal women and men age >= 50 years with a: * Hip or vertebral (clinical or morphometric) fracture * T-score of <=-2.5 at the spine or hip * Ten-year fracture probability by FRAX of >= 3% for hip fracture or >=20% for major osteoporotic fracture. People with diagnosed cases of osteoporosis or at high risk for fracture should have regular bone mineral density tests. For patients eligible for Medicare, routine testing is allowed once every 2 years. The testing frequency can be increased to one year for patients who have rapidly progressing disease, those who are receiving or discontinuing medical therapy to restore bone mass, or have additional risk factors. Dictated by: Gaetano Lema M.D. on 08/24/2024 at 20:56 Approved by: Gaetano Lema M.D. on 08/24/2024 at 20:58
--- NOTE | 2024-08-24 13:30 | DI.ECHO.S_ITS ---
[facility] : : [id number] : : [facility] : : [place], : : [place] [address] : : Phone: [phone] Echocardiogram Report + :Name: MARK HAINES Study Date: 08/24/2024 Height: 62 in : :[facility] #: [id number] ReadingLocation: Weight: 135 lb : : Gender: Female BSA: 1.6 m2 : :: 1955 Age: 68 yrs BP: 141/85 mmHg: :Reason For Study: chest pain :: Performed By: Securities Trader Felecia Eagar : :Referring: JEFYR BROWNLEE R : + Interpretation Summary The ejection fraction is estimated to be 60-65%. The right ventricle is mildly dilated. There is mild to moderate mitral regurgitation. The right ventricular systolic pressure is estimated to be at least 22 mmHg based on an estimated right atrial pressure of 3 mm Hg. Procedure: A two-dimensional transthoracic echocardiogram with color flow and Doppler was performed. The study quality was technically good. There is no prior echocardiogram noted for this patient. The patient was in a bradycardic rhythm during the exam. Left Ventricle: The left ventricle is normal in size and wall thickness. The estimated left ventricular end diastolic volume based on BSA is 50.2 ml/m2. There is no thrombus. There is no ventricular septal defect visualized. The ejection fraction is estimated to be 60-65%. There are no focal wall motion abnormalities. Diastolic parameters suggest a pseudonormalization pattern, consistent with probable elevated filling pressures. Right Ventricle: The right ventricle is mildly dilated. The right ventricular systolic function is normal. Atria: Both atria are normal in size. There is no Doppler evidence for an interatrial shunt. Mitral Valve: The mitral valve leaflets are slightly calcified. There is no mitral valve stenosis. There is mild to moderate mitral regurgitation. Aortic Valve: The aortic valve is trileaflet. The aortic valve opens well. The aortic valve is mildly calcified. There is no aortic valve stenosis. No aortic regurgitation is present. Tricuspid Valve: The tricuspid valve leaflets are thin and pliable. There is a trace or physiologic amount of tricuspid regurgitation. The right ventricular systolic pressure is estimated to be at least 22 mmHg based on an estimated right atrial pressure of 3 mm Hg. Pulmonic Valve: The pulmonic valve is not well seen, but is grossly normal. There is no pulmonic valvular regurgitation. Great Vessels: The aortic root is normal size. The ascending aorta is normal in size. The aortic arch is normal in size. The IVC is of normal diameter and collapses greater than 50% with a sniff. This suggests a low right atrial pressure of 3 mm Hg. Pericardium/ Pleura There is no pericardial effusion. There is no pleural effusion. MMode/2D Measurements & Calculations LVIDd: 4.3 cm AoV Openin.0 cm LVIDs: 2.5 cm LVOT diam: 1.9 cm IVSd: 0.87 cm Ao root diam: 3.2 cm LVPWd: 0.87 cm asc Aorta Diam: 2.9 cm LV christy. diameter/BSA (cm/m^2): 2.6 Ao Arch Diam (Prox Trans): 2.1 cm LV sys. diameter/BSA (cm/m^2): 1.5 FS: 41.8 % EPSS: 0.61 cm LA A2 area: 15.8 cm2 RA long axis: 4.5 cm LA A4 area: 15.0 cm2 RA area: 14.6 cm2 LA length (vol): 4.9 cm RA vol: 40.2 ml LA vol: 40.7 ml RA : 24.9 ml/m2 LA vol index: 25.1 ml/m2 RVD1 (basal): 4.3 cm IVC diam: 0.92 cm TAPSE: 2.3 cm Doppler Measurements & Calculations Ao V2 max: 140.9 cm/sec LVOT Max Ghulam: 93.4 cm/sec Ao V2 mean: 104.1 cm/sec LV V1 max P.5 mmHg Ao V2 VTI: 35.3 cm LV V1 VTI: 23.7 cm Ao max P.9 mmHg Ao mean P.6 mmHg MICHELLE(I,D): 2.0 cm2 MV E max ghulam: 96.8 cm/sec MICHELLE(V,D): 2.0 cm2 MV A max ghulam: 56.8 cm/sec MICHELLE indexed to BSA (cm^2/m^2): 1.2 MV E/A: 1.7 sev ratio: 0.67 Med Peak E' Ghulam: 5.9 cm/sec E/E' med: 16.3 Lat Peak E' Ghulam: 10.6 cm/sec E/E' lat: 9.1 E/e' average: 12.7 MV dec time: 0.21 sec TR max ghulam: 219.1 cm/sec TR max P.2 mmHg PA V2 max: 69.0 cm/sec SV(LVOT): 70.1 ml PA V2 mean: 48.0 cm/sec PA mean P.0 mmHg PA pr(Accel): 3.6 mmHg Reading Physician:05:28 PM
--- NOTE | 2024-08-24 22:34 | DI.NM.S_ITS ---
DATE OF SERVICE: 08/24/2024 EXERCISE TREADMILL STRESS TEST REPORT PROCEDURE: Exercise treadmill stress test without imaging. ORDERING PROVIDER: Suzanne Huitron M.D. INDICATIONS: The patient is a 68-year-old female with long-standing atypical chest discomfort radiating to the jaw. FINDINGS: 1. The patient was able to exercise for 6 minutes 12 seconds on a standard Cesar protocol suggesting average exercise capacity with an CHAZ of -3%, achieving 7.0 METs. 2. She had a normal heart rate and blood pressure response to exercise, achieving a maximum heart rate of 133 BPM (88% of her predicted maximum). 3. She had no chest discomfort or other anginal symptoms, and stopped because of hip pain. 4. Her resting ECG shows sinus rhythm with normal ST segments. There are no significant ST-segment shifts or arrhythmias with stress. IMPRESSION: 1. Normal exercise treadmill stress test for ischemia. 2. Average exercise capacity without angina or arrhythmias. Kim Burnett - RS/chinyere/SKB doc#: [id number]/job#: [id number] dd: 08/24/2024 18:02:00 dt: 08/24/2024 20:49:00 DICTATING MD/COPIES TO: Sammy Moses MD; Suzanne Huitron M.D. COPIES MNE: ALVIN;
== END ==
PROVIDERS: PCP Family Medicine; Referring Provider Family Medicine; Visit Provider Family Medicine
DX: M85.89 Other specified disorders of bone density and structure, multiple sites (principal); I34.0 Nonrheumatic mitral (valve) insufficiency; R07.89 Other chest pain; Z13.820 Encounter for screening for osteoporosis; Z78.0 Asymptomatic menopausal state
CPT/HCPCS: 77080; 93017; 93306

== ENCOUNTER → 2024-10-29 | Outpatient (CLI) | payer MEDICARE, SELFPAY ==
--- NOTE | 2024-10-29 16:53 | DI.MG.S_ITS ---
BILATERAL DIGITAL SCREENING MAMMOGRAM 3D/2D WITH CAD: 10/29/2024 CLINICAL: Routine screening. Family history of breast cancer. Comparison is made to exams dated: 10/09/2023 mammogram, 10/03/2022 mammogram, and 09/11/2021 mammogram - [facility]. The breasts are extremely dense, which lowers the sensitivity of mammography (category d />75% glandular tissue). Current study was also evaluated with a Computer Aided Detection (CAD) system. No significant masses, calcifications, or other findings are seen in either breast. There has been no significant interval change. IMPRESSION: NEGATIVE There is no mammographic evidence of malignancy. A 1 year screening mammogram is recommended. Based on the Tyrer Cuzick model (a risk assessment model) the patient's lifetime risk is 13.3% and her 10 year risk is 7.5%. According to the ACR, ACS, and NCCN guidelines, an annual breast MRI exam along with mammogram is recommended if the patient's lifetime risk is 20% or greater. This exam was interpreted at Station ID: [id number]. NOTE: For mammograms, a report in lay terms will be sent to the patient. Approximately 15% of breast malignancies will not be visualized mammographically. In the management of a palpable breast mass, a negative mammogram must not discourage biopsy of a clinically suspicious lesion. Electronically Signed By: Alfonso blankenship/aurelio:11/05/2024 18:46:18 letter sent: Normal Exam ACR BI-RADS Category 1: Negative
== END ==
PROVIDERS: PCP Family Medicine; Referring Provider Family Medicine; Visit Provider Family Medicine
DX: Z12.31 Encounter for screening mammogram for malignant neoplasm of breast (principal); Z80.3 Family history of malignant neoplasm of breast; R92.343 Mammographic extreme density, bilateral breasts
CPT/HCPCS: 77063; 77067

== ENCOUNTER → 2024-12-04 08:13 | Outpatient (CLI) | payer MEDICARE, SELFPAY ==
--- NOTE | 2024-12-04 08:14 | DI.US.S_ITS ---
PROCEDURE: US CAROTID DOPPLER BI INDICATIONS: Chest pain, paroxysmal atrial tachycardia, dizziness TECHNIQUE: Color and pulse Doppler interrogation was performed of both carotid systems, with image documentation and velocity measurements. COMPARISON: [facility], , CAROTID DOPPLER BI, 08/12/2020, 10:54. FINDINGS: Stenosis calculations are based on SRU (Society of Radiologists in Ultrasound) criteria. Right side: Brachial blood pressure: 131/65 mm Hg. Common carotid artery peak systolic velocity: 75 cm/sec. Internal carotid artery peak systolic velocity: 65 cm/sec. Internal carotid artery end diastolic velocity: 17 cm/sec. External carotid artery peak systolic velocity: 127 cm/sec. ICA/CCA peak systolic ratio: 0.8 . Beach scale imaging description: Atherosclerotic plaque Percent internal carotid artery stenosis: Less than 50 . Vertebral artery: Flow direction is antegrade. Left side: Brachial blood pressure: 133/69 mm Hg. Common carotid artery peak systolic velocity: 61 cm/sec. Internal carotid artery peak systolic velocity: 81 cm/sec. Internal carotid artery end diastolic velocity: 27 cm/sec. External carotid artery peak systolic velocity: 120 cm/sec. ICA/CCA peak systolic ratio: 1.3 Beach scale imaging description: Atherosclerotic plaque Percent internal carotid artery stenosis: Less than 50 . Vertebral artery: Flow direction is antegrade. IMPRESSION: Atherosclerotic plaque with less than 50% stenosis in both proximal ICA Approved by: Bernard Gonsalves M.D. on 12/04/2024 at 11:17
--- NOTE | 2024-12-04 08:14 | DI.MRI.S_ITS ---
PROCEDURE: MR HEAD/BRAIN WO CON INDICATIONS: Dizziness TECHNIQUE: Noncontrast axial T1 spin echo, axial T2 fast spin echo, sagittal and axial FLAIR, coronal T2 fast spin echo, axial gradient echo, axial diffusion and ADC through the brain. COMPARISON: None. FINDINGS: CSF Spaces: Basal cisterns are patent. No extra-axial fluid collections. Ventricles are normal in size and shape. Brain: No intracranial masses or hemorrhage. Beach/white matter interface is normal. Brainstem appears normal. Diffusion-weighted sequence is unremarkable without evidence of acute infarct. Normal intravascular flow voids are present. Atrophy and white matter chronic ischemic change Skull and face: Calvarium has normal marrow signal. Orbits appear normal. Sinuses: Sinuses and mastoids are clear. IMPRESSION: Atrophy and chronic ischemic change without acute hemorrhage, infarct or mass lesion Approved by: Bernard Gonsalves M.D. on 12/04/2024 at 18:11
== END ==
PROVIDERS: PCP Family Medicine; Referring Provider Family Medicine; Visit Provider Family Medicine
DX: R42 Dizziness and giddiness (principal); I47.19 Other supraventricular tachycardia; I65.23 Occlusion and stenosis of bilateral carotid arteries; R07.9 Chest pain, unspecified
CPT/HCPCS: 70551; 93880

== ENCOUNTER → 2025-06-15 13:05 | Outpatient (CLI) | payer MEDICARE, SELFPAY ==
--- NOTE | 2025-06-15 13:07 | DI.RAD.S_ITS ---
PROCEDURE: XR LUMBAR SPINE MIN 4V INDICATIONS: BACK PAIN AND BILATERAL HIP PAIN TECHNIQUE: 5 views of the lumbar spine were acquired, including bilateral oblique views. COMPARISON: [facility], , XR LUMBAR SPINE 2-3V, 06/04/2022, 11:15. FINDINGS: Bones: 5 nonrib-bearing vertebrae are present. There is normal bony alignment. No acute vertebral body compression fractures. No suspicious bony lesions. Multilevel lumbar spondylitic changes are again noted. Findings appear stable to mildly progressed. Multilevel degenerative endplate changes and prominent anterior endplate osteophytes. Mid and lower lumbar facet arthropathy redemonstrated. Soft tissues: Overlying bowel gas pattern is normal. No suspicious soft tissue calcifications. Vascular calcifications are present. Oblique images: No pars defects. IMPRESSION: Lumbar spine without acute osseous abnormalities or malalignment. Mild-moderate multilevel lumbar spondylosis with mid and lower lumbar facet arthropathy. Dictated by: Alfonso Don M.D. on 06/15/2025 at 15:13 Approved by: Alfonso Don M.D. on 06/15/2025 at 15:15
== END ==
PROVIDERS: PCP Family Medicine; Referring Provider Family Medicine; Visit Provider Physical Medicine & Rehabilitation
DX: M47.816 Spondylosis without myelopathy or radiculopathy, lumbar region (principal); M70.61 Trochanteric bursitis, right hip
CPT/HCPCS: 72110

== ENCOUNTER 2025-08-10 10:16 | Outpatient (CLI) | payer MEDICARE, SELFPAY ==
[2025-08-10] VITALS (10 sets, daily range): BP systolic 141–183; BP diastolic 62–75; PULSE 47–60; RESP 14–17; TEMP 36.7; O2SAT 97–100
[2025-08-10] MEDS: MIDAZOLAM 2 MG/2 ML VIAL IV (11:44)
[2025-08-10] MEDS: LIDOCAINE 1% 20 ML 5 ML INJ (11:49)
--- NOTE | 2025-08-10 11:59 | PM.PROC.IR.1 ---
Date/Time/Diagnoses Date of procedure: 08/10/25 Time of procedure: 11:59 Pre-procedure diagnosis: 1. FACET ARTHROPATHY Post-procedure diagnosis: same Procedure Notes Procedure: 1. BILATERAL- L4, L5 and S1 DIAGNOSTIC MB BLOCKS with LA Anesthetic Indications: Kim is referred by Dr. Huitron for treatment of Bilateral Axial LBP. Physician: Sammy Louie Total Fluoroscopy time (seconds): 12 Total sedation minutes: 13 Complications: none Procedure in detail & Post-procedure care: DESCRIPTION OF PROCEDURE Fluoroscopically guided, contrast-controlled bilateral L4, L5 and S1 medial branch blocks with 0.5cc of 0.5% Marcaine. Following review of allergy and review of potential side effects and complications, including, but not necessarily limited to, infection, allergic reaction, local tissue breakdown, nerve injury, paralysis, stroke and possible , the patient indicated that the patient understood and agreed to proceed. An informed consent document was signed by the patient, witnessed by a nurse, and placed in the patient's chart. After review of previous anaesthesic history and IV conscious sedation the patient was deemed safe to proceed with today's procedure with IV conscious sedation as ASA class II designation. Safety time-out was performed to confirm patient ID, procedure to be performed and site of procedure. IV sedation was accomplished with a combination of 2mg of Versed was administered by the RN after DO order, titrated to patient comfort during the course of the procedure while the patient remained responsive to all verbal commands In the prone position, following sterile prep and drape of the lumbar region, the right L4, L5 and S1 anatomical location of the medial branch of the dorsal ramus was identified fluoroscopically. Subsequently an anesthetic skin wheal using 1% lidocaine solution was initiated at each of the anatomical spots. Subsequently then a 22-gauge 3.5-inch spinal needle was atraumatically introduced and advanced under fluoroscopic guidance at each of the corresponding sites at the right L4, L5 and S1 MB. After negative aspiration, 0.2cc of Isovue 200 was injected, confirming placement without vascular or intrathecal uptake. Subsequently then 0.5cc of 0.5% Marcaine solution was injected at each of the corresponding sites at the right L4, L5 and S1 medial branch locations. The identical procedure was replicated on the left. The patient tolerated the procedure well without signs or symptoms of complications prior to transfer to the recovery area continued monitoring without incident. Post-procedure, the patient was monitored initiating provocative activities to measure the amount of relief from block of the facetogenic pain. The patient reported a VAS of 7 prior to the procedure and a post-procedure VAS of 1. It has been a pleasure to assist in the diagnostic and therapeutic care of your patient. POST OP INSTRUCTIONS The patient was provided with a Pain Log to complete over the next several hours and subsequent days prior to the patient's follow up with the ordering physician. If the patient has civil engineer land development relief to the solution applied, then they may be a candidate for medial branch rhizotomy. The patient is aware, was provided, once again, with a Pain Log and will follow up with the referring physician for review and clinical correlation
== END 2025-08-10 12:15 | disposition home or self-care (01) ==
LOC: RAD 10:16
PROVIDERS: PCP Family Medicine; Referring Provider Physical Medicine & Rehabilitation; Visit Provider Physical Medicine & Rehabilitation
DX: M47.816 Spondylosis without myelopathy or radiculopathy, lumbar region (principal); M47.817 Spondylosis without myelopathy or radiculopathy, lumbosacral region
CPT/HCPCS: 64493; 64494; 99152; J2250